=== PATIENT | female | born 1970 | race Caucasian/White ===

== ENCOUNTER 2021-07-06 10:08 | Outpatient (REF) | payer OTHER, SELFPAY ==
[2021-07-06 10:12] LABS: MANUAL DIFF FLAG NO
[2021-07-06 10:45] LABS: Basophils Percent Auto 0.4 % (0-2); Eosinophils Absolute Auto 0.2 X10*3/uL (0.0-0.4); Hematocrit 42.2 % (37-47); Hemoglobin 14.6 g/dl (12.0-16.0); Imm Gran Abs Auto 0.03 X10*3/uL (0.00-0.03); Imm Gran Pct Auto 0.4 % (0.0-0.4); Lymphocytes Absolute Auto 2.4 X10*3/uL (1.2-4.9); Mean Corpuscular HGB Conc 34.6 g/dl (31.0-35.0); Mean Corpuscular Hemoglobin 32.7 pg (27.0-33.0); Mean Corpuscular Volume 94.6 fL (80-98); Monocytes Absolute Auto 0.5 X10*3/uL (0.1-1.2); Monocytes Percent Auto 6.3 % (2-11); Neutrophils Absolute Auto 4.5 X10*3/uL (2.0-8.3); Neutrophils Percent Auto 58.9 % (45-73); Platelet Count 278 X10*3/uL (160-400); Red Blood Count 4.46 X10*6/uL (4.20-5.50); Red Cell Distribution Width 11.9 % (11.0-16.0); White Blood Count 7.6 X10*3/uL (4.8-10.8)
[2021-07-06 10:52] LABS: Estimated Average Glucose 88 mg/dL; Hemoglobin A1c % 4.7 %
[2021-07-06 10:53] LABS: Glucose Urine UA NEG (NEG); Leukocyte Esterase Urine NEG (NEG); Nitrite Urine NEG (NEG); Specific Gravity - Urine 1.025 (1.005-1.025); Urine Blood TRACE (NEG); Urine Ketones NEG (NEG); Urine Protein NEG (NEG-TRACE)
[2021-07-06 10:56] LABS: Appearance Urine CLEAR; Color Urine YELLOW
[2021-07-06 10:58] LABS: Alanine Aminotransferase 33 U/L (0-31); Albumin Level 4.2 g/dL (3.5-5.0); Alkaline Phosphatase 78 U/L (39-117); Anion Gap 12 (12-20); Aspartate Amino Transferase 23 U/L (5-31); Bilirubin Total 0.9 mg/dL (0.0-1.0); Blood Urea Nitrogen 16 mg/dL (9-16); Calcium 9.9 mg/dL (8.4-10.2); Carbon Dioxide 27 mmol/L (22-29); Chloride 104 mmol/L (96-108); Cholesterol 193 mg/dL; Estimated Glomerular Filt Rate > 60; Glucose Fasting 111 mg/dL (60-99); HDL Cholesterol 53 mg/dL; LDL Cholesterol Calculated 115 mg/dl; Potassium 4.1 mmol/L (3.3-5.1); Sodium 139 mmol/L (135-145); Total Protein 6.9 g/dL (6.5-8.0); Triglycerides 125 mg/dL
[2021-07-06 11:22] LABS: Creatinine Urine 167.02 mg/dL; Microalbum/Creatinine Ratio Ur 4.1 ug/mg cr
[2021-07-06 12:10] LABS: Bacteria Urine 1+ /LPF; RBC Urine 0 /HPF (0); Squamous Epithelial Cell Urine 2+ /LPF; WBC Urine 0-2 /HPF (0-4)
== END 2021-07-06 10:09 | disposition home or self-care (01) ==
LOC: HO.LNP 10:08
PROVIDERS: Visit Provider Internal Medicine
DX: Z00.00 Encounter for general adult medical examination without abnormal findings (principal); D72.820 Lymphocytosis (symptomatic); R79.9 Abnormal finding of blood chemistry, unspecified; R73.03 Prediabetes
CPT/HCPCS: 80053; 80061; 81001; 82043; 83036; 85025

== ENCOUNTER 2022-09-14 10:58 | Outpatient (REF) | payer BC, SELFPAY ==
[2022-09-14 11:03] LABS: MANUAL DIFF FLAG NO
[2022-09-14 11:56] LABS: Appearance Urine Clear; Color Urine Yellow; Glucose Urine UA Negative (Negative); Leukocyte Esterase Urine Negative (Negative); Nitrite Urine Negative (Negative); PH 5.5 (5.0-9.0); Urine Blood Negative (Negative); Urine Ketones Negative (Negative); Urine Protein Negative (Neg-Trace)
[2022-09-14 11:57] LABS: Basophils Absolute Auto 0.1 X10*3/uL (0.0-0.2); Basophils Percent Auto 0.9 % (0-2); Eosinophils Absolute Auto 0.2 X10*3/uL (0.0-0.4); Eosinophils Percent Auto 3.3 % (0-4); Hematocrit 40.9 % (37.0-47.0); Hemoglobin 14.3 g/dl (12.0-16.0); Imm Gran Abs Auto 0.01 X10*3/uL (0.00-0.03); Imm Gran Pct Auto 0.2 % (0.0-0.4); Lymphocytes Absolute Auto 1.9 X10*3/uL (1.2-4.9); Lymphocytes Percent Auto 32.9 % (20-40); Mean Corpuscular Hemoglobin 33.4 pg (27.0-33.0); Mean Corpuscular Volume 95.6 fL (80.0-98.0); Mean Platelet Volume 9.9 fL (9.4-12.3); Monocytes Absolute Auto 0.4 X10*3/uL (0.1-1.2); Monocytes Percent Auto 7.5 % (2-11); Neutrophils Absolute Auto 3.2 x10*3/uL (2.0-8.3); Neutrophils Percent Auto 55.2 % (45-73); Platelet Count 271 X10*3/uL (160-400); Red Blood Count 4.28 X10*6/uL (4.20-5.50); Red Cell Distribution Width 12.8 % (11.0-16.0); White Blood Count 5.7 X10*3/uL (4.8-10.8)
[2022-09-14 12:10] LABS: Bacteria Urine Trace (None Seen); Estimated Average Glucose 82 mg/dL; Hemoglobin A1C 92.5537 umol/L; Hemoglobin A1c % 4.5 %; Hyaline Casts Urine 0-2 /LPF (0-2); WBC Urine 0-5 /HPF (0-5)
[2022-09-14 12:33] LABS: Alanine Aminotransferase 10 U/L (0-31); Albumin Level 4.5 g/dL (3.5-5.0); Alkaline Phosphatase 64 U/L (39-117); Anion Gap 15 (12-20); Aspartate Amino Transferase 17 U/L (5-31); Bilirubin Total 1.3 mg/dL (0.0-1.0); Blood Urea Nitrogen 17 mg/dL (9-16); Calcium 9.5 mg/dL (8.4-10.2); Carbon Dioxide 24 mmol/L (22-29); Chloride 105 mmol/L (96-108); Cholesterol 220 mg/dL; Estimated Glomerular Filt Rate > 60; Glucose Fasting 106 mg/dL (60-99); HDL Cholesterol 74 mg/dL; LDL Cholesterol Calculated 136 mg/dl; Potassium 4.3 mmol/L (3.3-5.1); Sodium 140 mmol/L (135-145); Total Protein 7.2 g/dL (6.5-8.0); Triglycerides 50 mg/dL
[2022-09-14 12:40] LABS: Creatinine Urine 109.45 mg/dL; Microalbum/Creatinine Ratio Ur 5.4 ug/mg cr
== END 2022-09-14 10:59 | disposition home or self-care (01) ==
LOC: HO.LNP 10:58
PROVIDERS: Visit Provider Internal Medicine
DX: Z00.00 Encounter for general adult medical examination without abnormal findings (principal); R73.03 Prediabetes; D72.820 Lymphocytosis (symptomatic)
CPT/HCPCS: 80053; 80061; 81001; 82043; 83036; 85025

== ENCOUNTER 2022-11-22 15:51 | Outpatient (REF) | payer BC, SELFPAY ==
[2022-11-22 16:03] LABS: Appearance Urine Cloudy; Color Urine Yellow; Glucose Urine UA Negative (Negative); Leukocyte Esterase Urine Negative (Negative); Nitrite Urine Negative (Negative); PH 5.5 (5.0-9.0); Specific Gravity - Urine 1.025 (1.005-1.025); Urine Blood Negative (Negative); Urine Ketones Negative (Negative); Urine Protein Negative (Neg-Trace)
[2022-11-22 16:14] LABS: Bacteria Urine 4+ (None Seen)
== END 2022-11-22 15:52 | disposition home or self-care (01) ==
LOC: HO.LNP 15:51
PROVIDERS: Visit Provider Internal Medicine
DX: R31.9 Hematuria, unspecified (principal)
CPT/HCPCS: 81001; 87086

== ENCOUNTER 2022-12-20 10:39 | Outpatient (REF) | payer BC, SELFPAY ==
[2022-12-20 11:37] LABS: Appearance Urine Cloudy; Color Urine Yellow; Glucose Urine UA Negative (Negative); Leukocyte Esterase Urine Negative (Negative); Nitrite Urine Negative (Negative); Urine Blood Negative (Negative); Urine Ketones Negative (Negative); Urine Protein Negative (Neg-Trace)
== END 2022-12-20 10:40 | disposition home or self-care (01) ==
LOC: HO.LNP 10:39
PROVIDERS: Visit Provider Internal Medicine
DX: R31.9 Hematuria, unspecified (principal)
CPT/HCPCS: 81003

== ENCOUNTER 2023-12-19 11:14 | Outpatient (REF) | payer BC, SELFPAY ==
[2023-12-19 11:18] LABS: MANUAL DIFF FLAG NO
[2023-12-19 11:30] LABS: Basophils Percent Auto 0.6 % (0-2); Eosinophils Absolute Auto 0.2 X10*3/uL (0.0-0.4); Eosinophils Percent Auto 3.4 % (0-4); Hemoglobin 14.4 g/dl (12.0-16.0); Imm Gran Abs Auto 0.01 X10*3/uL (0.00-0.03); Imm Gran Pct Auto 0.2 % (0.0-0.4); Lymphocytes Percent Auto 31.2 % (20-40); Mean Corpuscular HGB Conc 35.1 g/dl (31.0-35.0); Mean Corpuscular Hemoglobin 33.4 pg (27.0-33.0); Mean Corpuscular Volume 95.1 fL (80.0-98.0); Monocytes Absolute Auto 0.4 X10*3/uL (0.1-1.2); Monocytes Percent Auto 6.7 % (2-11); Neutrophils Absolute Auto 3.7 x10*3/uL (2.0-8.3); Neutrophils Percent Auto 57.9 % (45-73); Platelet Count 250 X10*3/uL (160-400); Red Blood Count 4.31 X10*6/uL (4.20-5.50); Red Cell Distribution Width 12.5 % (11.0-16.0); White Blood Count 6.4 X10*3/uL (4.8-10.8)
[2023-12-19 11:37] LABS: Appearance Urine Clear; Color Urine Yellow; Glucose Urine UA Negative (Negative); Leukocyte Esterase Urine Negative (Negative); Nitrite Urine Negative (Negative); Specific Gravity - Urine 1.025 (1.005-1.025); UMIC TRIGGER UACC YES; Urine Blood Small (1+) (Negative); Urine Ketones Negative (Negative); Urine Protein Negative (Neg-Trace)
[2023-12-19 11:41] LABS: Alanine Aminotransferase 12 U/L (0-31); Albumin Level 4.2 g/dL (3.5-5.0); Alkaline Phosphatase 57 U/L (39-117); Anion Gap 11 (12-20); Aspartate Amino Transferase 16 U/L (5-31); Bilirubin Total 0.7 mg/dL (0.0-1.0); Blood Urea Nitrogen 20 mg/dL (9-16); Calcium 9.5 mg/dL (8.4-10.2); Carbon Dioxide 26 mmol/L (22-29); Chloride 104 mmol/L (96-108); Cholesterol 210 mg/dL (<200); Estimated Glomerular Filt Rate > 60; Glucose Fasting 97 mg/dL (60-99); HDL Cholesterol 64 mg/dL (>40); LDL Cholesterol Calculated 133 mg/dL (<100); Potassium 4.1 mmol/L (3.3-5.1); Sodium 137 mmol/L (135-145); Total Protein 7.2 g/dL (6.5-8.0); Triglycerides 67 mg/dL (<150)
[2023-12-19 11:44] LABS: Bacteria Urine None Seen (None Seen); Hyaline Casts Urine 0-2 /LPF (0-2); WBC Urine 0-5 /HPF (0-5)
[2023-12-19 11:58] LABS: Estimated Average Glucose 80 mg/dL; Hemoglobin A1c % 4.4 % (<6.0)
[2023-12-19 12:18] LABS: Creatinine Urine 163.19 mg/dL; Microalbum/Creatinine Ratio Ur 4.2 ug/mg cr (<30)
== END 2023-12-19 11:15 | disposition home or self-care (01) ==
LOC: HO.LNP 11:14
PROVIDERS: Visit Provider Internal Medicine
DX: Z00.00 Encounter for general adult medical examination without abnormal findings (principal); R73.03 Prediabetes; D72.820 Lymphocytosis (symptomatic)
CPT/HCPCS: 80053; 80061; 81001; 82043; 82570; 83036; 85025

== ENCOUNTER 2025-03-29 11:11 | Outpatient (REF) | payer BC, SELFPAY ==
[2025-03-29 11:15] LABS: MANUAL DIFF FLAG NO
[2025-03-29 12:30] LABS: Basophils Percent Auto 0.6 % (0-2); Eosinophils Absolute Auto 0.3 X10*3/uL (0.0-0.4); Eosinophils Percent Auto 5.8 % (0-4); Hematocrit 41.5 % (37.0-47.0); Hemoglobin 14.4 g/dl (12.0-16.0); Imm Gran Abs Auto 0.01 X10*3/uL (0.00-0.03); Imm Gran Pct Auto 0.2 % (0.0-0.4); Lymphocytes Absolute Auto 2.2 X10*3/uL (1.2-4.9); Lymphocytes Percent Auto 43.6 % (20-40); Mean Corpuscular HGB Conc 34.7 g/dl (31.0-35.0); Mean Corpuscular Hemoglobin 32.7 pg (27.0-33.0); Mean Corpuscular Volume 94.3 fL (80.0-98.0); Mean Platelet Volume 10.1 fL (9.4-12.3); Monocytes Absolute Auto 0.4 X10*3/uL (0.1-1.2); Monocytes Percent Auto 8.6 % (2-11); Neutrophils Absolute Auto 2.1 x10*3/uL (2.0-8.3); Neutrophils Percent Auto 41.2 % (45-73); Platelet Count 225 X10*3/uL (160-400); Red Cell Distribution Width 12.1 % (11.0-16.0)
[2025-03-29 12:41] LABS: Appearance Urine Clear; Color Urine Yellow; Glucose Urine UA Negative (Negative); Leukocyte Esterase Urine Negative (Negative); Nitrite Urine Negative (Negative); PH 5.5 (5.0-9.0); Specific Gravity - Urine 1.025 (1.005-1.025); Urine Blood Negative (Negative); Urine Ketones Negative (Negative); Urine Protein Negative (Neg-Trace)
--- OUTSIDE RECORDS SUMMARY | 2025-03-29 12:58 | XMS_ITS ---
Author Organization [employer] [facility] Address [address] [place] [address] Care Team Providers Care Staff Physician Name Role Phone Juan José Wyatt MD Primary Care Provider Conchis Davis [phone] REASON FOR VISIT NEEDS F/U APPT Encounters Encounter Location Date Provider Diagnosis [facility] [employer] [address] [place] [address] 05/01/2024 Conchis Duncan Plan Of Treatment Next Appt Details Provider Name:Conchis verdin, 05/31/2025 02:40:00 PM, [address], [address], [place], [address], Progress Notes * DICK TARANGODOB:[birth year] (53 yo F)Acc No.[id number]:05/01/2024 Patient:?DICK TARANGO :1970???Age:53 Y???Sex:Female Address:[address] [place] [address], [address] * true * Date:? Generated for Printi ng/Famaribelg/eTransmitting on:?03/29/2025 12:58 PM EDT
--- OUTSIDE RECORDS SUMMARY | 2025-03-29 12:59 | XMS_ITS ---
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 :1970???Age:54 Y???Sex:Female D ate:01/07/2025 Address:[address] [place], [place] [id number] Pcp:Juan José Wyatt MD Subjective: * Chief Complaints: * ???1. 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 * Medical History:? Objective: * Vitals:? Assessment: Plan: * Treatment: * Images: Billing Information: * Visit Code:? * Procedure Codes:? * Electronic signature of Neftali Duncan MD on 03/29/2025 at 12:59 PM EDT Sign off status: Pending * Appointment Provider:?Conchis Duncan M.D. Date:?01/07/2025 Generated for Jude gonzáles/Manny/Rio on:?03/29/2025 12:59 PM EDT
--- OUTSIDE RECORDS SUMMARY | 2025-03-29 12:59 | XMS_ITS | Patient Health Record ---
Author Organization Juan José Wyatt MD Address [address] [place], [place] [address] Care Team Providers Care Screedman/Laborer Name Role Phone Juan José Wyatt Primary Care Provider [phone] Allergies No Known Allergies Results Component Value Reference Range Notes Complete Blood Count Auto Di ff (Not yet reviewed by provider) Interpretation: Performing Lab:[facility], [address] [place] [id number] Notes/Report: White Blood Count 5.0 4.8-10.8 X10*3/uL Red Blood Count 4.40 4.20-5.50 X10*6/uL Hemoglobin 14.4 12.0-16.0 g/dl Hematocrit 41.5 37.0-47.0 % Mean Corpuscular Volume 94.3 80.0-98.0 fL Mean Corpuscular Hemoglobin 32.7 27.0-33.0 pg Mean Corpuscular HGB Conc 34.7 31.0-35.0 g/dl Red Cell Distribution Width 12.1 11.0-16.0 % Platelet Count 225 160-400 X10*3/uL Mean Platelet Volume 10.1 9.4-12.3 fL Neutrophils Percent Auto 41.2 45-73 % Imm Gran Pct Auto 0.2 0.0-0.4 % Lymphocytes Percent Auto 43.6 20-40 % Monocytes Percent Auto 8.6 2-11 % Eosinophils Percent Auto 5.8 0-4 % Basophils Percent Auto 0.6 0-2 % NRBC Pct Auto 0.0 0.0-0.2 /100WBC Neutrophils Absolute Auto 2.1 2.0-8.3 x10*3/u L Imm Gran Abs Auto 0.01 0.00-0.03 X10*3/uL Lymphocytes Absolute Auto 2.2 1.2-4.9 X10*3/u L Monocytes Absolute Auto 0.4 0.1-1.2 X10*3/uL Eosinophils Absolute Auto 0.3 0.0-0.4 X10*3/u L Basophils Absolute Auto 0.0 0.0-0.2 X10*3/uL NRBC Abs Auto 0.000 0.0-0.012 X10*3/uL Ariela Chen Reviewed date:03/29/2025 12:02:35 PM Interpretation: Performing Lab:[facility], [address] [place] [phone] Notes/Report: Ariela Chen See Note Specimen held untested for 24 hours; Call to request Chemistry testing. Reason For Referral No Information Medications Medication SIG (Take, Route, Frequency, Duration) Notes Start Date End Date Status Clotrimazole-Betamethaso ne 1-0.05 % 1 application Externally Twice a day for 30 days 01/10/2021 Not-Taki ng Imitrex 100 MG 1 tablet as needed Orally Once a day for 30 days 07/08/2017 Not-Taking Hyoscyamine Sulfate 0.125 MG 1 tablet on the tongue and allow to dissolve before meals Orally every 4 hrs Not-Taking ProAir HFA 108 (90 Base) MCG/ACT 1 puff as needed Inhalation every 4 hrs for 30 days 06/24/2020 Active Omeprazole 20 MG TAKE 1 CAPSULE BY MO [facility] EVERY DAY Orally Once a day for 90 days Active Fluticasone Propionate 50 MCG/ACT USE 2 SPRAYS IN EACH NOSTRIL EVERY DAY for 90 Active traZODone HCl 50 MG TAKE 1 TABLET BY MIREYA EVERY DAY AT BEDTIME NEEDED for 90 Active Paxlovid (300/100) 20 x 150 MG & 10 x 100MG 3 tablets Orally Twice a day for 5 day(s) 05/14/2024 Active Immunizations Vaccine Route Administration Date Status Comme nts Covid Vaccine Unknown 12/13/2020 Administered [facility] Covid Vaccine Unknown 11/22/2020 [facility]ered [facility] 11-22 #1 12-13-20 #2 Fluarix Quadrivalent Unknown 09/05/2020 Administered at work Fluarix Quadrivalent IM Intramuscular 08/24/2021 Administe red SARS-COV-2 Pfizer Unknown 11/22/2020 Administered SARS-COV-2 Pfizer Unknown 10/28/2021 Administered Fluarix Quadrivalent IM Intramuscular 09/14/2022 Administe red Fluarix Quadrivalent Unknown 09/22/2018 Refused Social History Tobacco Use: Social History Observation Description Date Details (start date - stop date) Never Smoker NA - NA Tobacco Use/Smoking Question Answer Notes Patient is a nonsmoker Additional Findings: Tobacco Non-User Cu rrent non-smoker, currently using no form of tobacco Alcohol Screen Question Answer Notes Did you have a drink contain ing alcohol in the past year? Yes How often did you have a dri nk containing alcohol in the past year? Monthly or less (1 point) How many drinks did you have on a typical day when you were drinking in the past year? 1 or 2 drinks (0 point) How often did you have 6 or more drinks on one occasion in the past year? Never (0 point) Points 1 Interpretation Negative Problems Problem Type SNOMED Code ICD Code Onset Dates Problem Status W/U Status Risk Notes Problem 43956311 Hematuria (R31.9) Active confirmed Problem 70470788 Lymphocytosis (D72.820) Active confirmed Problem Anxiety (88313448) Anxiety (F41.9) Active confi rmed Problem 184703047 Urinary incontinence (R32) Active confirmed Problem 445125917 Migraine without aura and without status migrainosus, not intractable (G43.009) Active confirmed Problem 700263922 Atyp squam cell of undet signfc cyto smr crvx (ASC-US) (R87.610) Active confirmed Problem 035467999 Prediabetes (R73.03) Active confirmed Problem 931332463494627 Primary osteoarthritis of right hand (M19.041) Active confirmed Vital Signs Height 65 in 05/14/2024 weight at home is 160 BP not taken at home no [id number] Encounters Encounter Location Date Provider Diagnosis Juan José Wyatt MD [address] [place] [id number] 03/29/2025 Juan José Wyatt Blood tests for routine general physical examination Z00.00 ; Prediabetes R73.03 ; Lymphocytosis D72.820 and Hematuria R31.9 Juan José Wyatt MD [address] [place] [phone] 05/14/2024 Juan José Wyatt Acute COVID-19 U07.1 Assessments Encounter Date Diagnosis (ICD Code) Assessment Notes Treatment Notes Treatment Clinical Notes Section Notes 03/29/2025 Blood tests for routine general physical examination (ICD-10 - Z00.00) 05/14/2024 Acute COVID-19 (ICD-10 - U07.1) patient verbalized understanding of medication and directions for use 03/29/2025 Prediabetes (ICD-10 - R73.03) 03/29/2025 Lymphocytosis (ICD-10 - D72.820) 03/29/2025 Hematuria (ICD-10 - R31.9) Plan Of Treatment Pending Test Test Name Order Date Electrocardiogram (EKG) 04/19/2017 Electrocardiogram (EKG) 05/01/2018 COLOGUARD 06/24/2020 Complete Blood Count Auto Diff Comprehensive [place]. Panel Fast 5 Lipid Panel 03/29/2025 Microalbumin, Random 03/29/2025 Hemoglobin A1c 03/29/2025 UA ClnCatch+Micro w/rflx Cult 03/29/2025 Next Appt Details Provider Name:Juan José Goldsmith ier, 04/05/2025 04:00:00 PM, [address], [address], [place], [place], [phone], Insurance Providers Payer Name Payer Address Payer Phone Subscriber Number Group Number Insured Name Patient Relationship to Insured Coverage Start Date Coverage End Date [employer] [address] [place], [place] [id number] [phone] [id number] Tamanna Schneider Self - patient is the insured Medical (General) History Medical History History ICD Code Pap Smear due 2019 per hedis review nurse seen by urology for hematuria in past cologard neg 2019
--- OUTSIDE RECORDS SUMMARY | 2025-03-29 13:00 | XMS_ITS ---
Author Organization [employer] [facility] Address [address] [place] [address] Care Team Providers Care Women Designer Name Role Phone Juan José Wyatt MD Primary Care Provider Conchis Davis [phone] MANZANARES APPT Encounters Encounter Location Date Provider Diagnosis [facility] [employer] [address] [place] [address] 05/06/2024 Conchis Duncan Plan Of Treatment Next Appt Details Provider Name:Conchis verdin, 05/31/2025 02:40:00 PM, [address], [address], [place], [address], Progress Notes * DICK TARANGODOB:[birth year] (53 yo F)Acc No.[id number]:05/06/2024 Patient:?DICK TARANGO :1970???Age:53 Y???Sex:Female Address:[address] [place] [address], [address] * true * Date:? Generated for Printi nivia/Famaribelg/eTransmitting on:?03/29/2025 01:00 PM EDT
--- OUTSIDE RECORDS SUMMARY | 2025-03-29 13:00 | XMS_ITS | Patient Health Record ---
Author Organization [facility] Address [address] [place] [address] Care Team Providers Care Deputy Chief Sheriff Name Role Phone Yoselin FRAZIER, Juan José Primary Care Provider Conchis Davis Unavailable [phone] Allergies No Known Allergies Results Component Value Reference Range Notes SURGICAL PATHOLOGY Reviewed date:05/05/2024 06:27:12 PM Interpretation: Performing Lab:Testing performed or reported by [facility], [place] [address] Michael Rodriguez MD, Security Attendant CLIA# [id number] Notes/Report: Patient Name: DICK TARANGO Lab Patient : 1970 (Age: 53) Collection Date: 05/01/2024 Accession Date: 05/01/2024 Sign Out Date: 05/05/2024 Tissue Source: 1:EMB Final Diagnosis: Endometrium, biopsy: - Proliferative endometrium. Primary Pathologist:Vanna Price M.D. electronically signed out by: Vanna Price M.D. / [facility] Clinical History: AUB Gross Description: Labeled endometrial biopsy . Received in formalin is a 2.2 x 2.0 x 0.3 cm aggregate of red, manzanares tissue with translucent mucus. The specimen is entirely submitted. 1-multiple pieces, x 2. (EG)* As of February 01, 2024, the specimen processing and staining is performed at [facility], [address] [place] [address] (CLIA#[id number]). [facility]. João Rodríguez M.D. Security Attendant of Surgical Pathology, Donavan Rich M.D. Security Attendant Cytopathology Phone #: [phone], On-Call Pathologist: [id number] Test, Urine Reviewed date:05/01/2024 11:15:29 AM Interpretation: Performing Lab: Notes/Report: Test, Urine Negative Reason For Referral No Information Medications Medication SIG (Take, Route, Frequency, Duration) Notes Start Date End Date Status Norethindrone Acetate 5 MG 1 tablet Oral ly TWICE A DAY for 14 days 05/01/2024 Active Fluticasone Propionate 50 MCG/ACT USE 2 SPRAYS IN EACH NOSTRIL EVERY DAY Nasal for 90 Days Active Albuterol Sulfate HFA 108 (90 Base) MCG/ACT INHALE 1 PUFF INTO THE LUNGS EVERY 4 HOURS NEEDED Inhalation for 30 Days Active traZODone HCl 50 MG TAKE 1 TABLET BY MIREYA TH EVERY DAY AT BEDTIME NEEDED Oral for 90 Days Active Omeprazole 20 MG 1 capsule 30 minutes before morning meal Orally Once a day for 30 day(s) 01/02/2024 Active miSOPROStol 200 MCG 2 Orally night befor e procedure for 1 days 02/06/2024 Active Social History Tobacco Use: Social History Observation Description Date Details (start date - stop date) Never Smoker NA - NA Tobacco Use/Smoking Question Answer Notes Are you a nonsmoker Alcohol Screen (Audit-C) Question Answer Notes Did you have a [...] Never (0 point) Points 1 Interpretation Negative Tobacco use other than smoking: Question Answer Notes Are you an other tobacco user? No Problems Problem Type SNOMED Code ICD Code Onset Dates Problem Status W/U Status Risk Notes Problem Reduced libido (9921910) Decreased libido (R68.82) Active confirmed Problem Gastro-esophage al reflux disease without esophagitis (147335236) Gastro-esophageal reflux disease without esophagitis (K21.9) Active confirmed Problem Abnormal vaginal bleeding (839454078) Other specified abnormal uterine and vaginal bleeding (N93.8) Active confirmed Problem Abnormal uterine bleeding (81130167418499 ) Abnormal uterine and vaginal bleeding, unspecified (N93.9) Active confirmed Problem Unspecified menopausal and perimenopausal disorder (N95.9) Active confirmed Problem Menopause (010483607) Menopausal and female climacteric states (N95.1) Active confirmed Encounters Encounter Location Date Provider Diagnosis [address] [place] [address] 05/01/2024 Conchis Dakota Abnormal uterine and vaginal bleeding, unspecified N93.[address] [address] 05/01/2024 Conchis Duncan [address] [address] 05/06/2024 Conchis Huffanueva Assessments Encounter Date Diagnosis (ICD Code) Assessment Notes Treatment Notes Treatment Clinical Notes Section Notes 05/01/2024 Abnormal uterine and vaginal bleeding, unspecified (ICD-10 - N93.9) DISCUSSED HSONO FINDINGS AND THINNER ENDOMETRIAL LINING. WILL WAIT FOR RADIOLOGIST TO READ THE REPORT BEFORE DISCUSSING POSSIBLE CERVICAL POLYP THAT WAS NOT SEEN BEFORE. PAT WILL RETURN TO DISCUSS EMB RESULTS. IN THE MEANTIME, WILL TREAT WITH AYGESTIN TO CONTROL BLEEDING. Plan Of Treatment Pending Test Test Name Order Date Sonohysterogram 01/02/2024 Urinalysis 01/02/2024 ENDOMETRIAL BX 01/02/2024 INHIBIN B 01/31/2024 MM Digital Mammo Screening 01/02/2024 Next Appt Details Provider Name:Conchis Ruiz velvet, 05/31/2025 02:40:00 PM, [address] [place] [address], [facility] [address], [place], [address], Insurance Providers Payer Name Payer Address Payer Phone Subscriber Number Group Number Insured Name Patient Relationship to Insured Coverage Start Date Coverage End Date [facility] [address] [place] [address] [id number] DICK TARANGO Self - patient is the insured Medical (General) History Medical History History ICD Code Atypical squamous cells of u ndetermined significance on cytologic smear of cervix (ASC-US) R87.610 Cervical high risk human papillomavirus (HPV) DNA test positive R87.810 Gastro-esophageal reflux disease without esophagitis K21.9 Headache, unspecified R51.9 Inconclusive mammogram R92.2 Mammographic heterogeneous density, bila teral breasts R92.333 Abnormal uterine and vaginal bleeding, u nspecified N93.9 Decreased libido R68.82 Surgical History Surgery Date(Month/Year) Bunionectomy Colposcopy Breast Reduction Tonsillectomy [place] Tooth Extraction Hospitalization History Reason Date(Month/Year) See Surgical Hx
--- OUTSIDE RECORDS SUMMARY | 2025-03-29 13:01 | XMS_ITS ---
Author Organization Juan José Wyatt MD Address [address] [place], [place] [address] Care Team Providers Care Crop Scout Name Role Phone Juan José Wyatt Primary Care Provider Allergies No Known Allergies REASON FOR VISIT Positive Covid tested this AM, c/o fatigue , headache productive cough, muscle pain, runny nose congestion x 4 days, Video [phone] Medications Medication SIG (Take, Route, Frequency, Duration) [...] before meals Orally every 4 hrs Not-Taking Omeprazole 20 MG TAKE 1 CAPSULE BY MO [facility] EVERY DAY Orally Once a day for 90 days Active Fluticasone Propionate 50 MCG/ACT USE 2 SPRAYS IN EACH NOSTRIL EVERY DAY for 90 Active ProAir HFA 108 (90 Base) MCG/ACT 1 puff as needed Inhalation every 4 hrs for 30 days 06/24/2020 Active traZODone HCl 50 MG TAKE 1 TABLET BY MIREYA EVERY DAY AT BEDTIME NEEDED for 90 Active Paxlovid (300/100) 20 x 150 MG & 10 x 100MG 3 tablets Orally Twice a day for 5 day(s) 05/14/2024 Active Vital Signs Height 65 in 05/14/2024 weight at home is 160 BP not taken at home no [id number] Encounters Encounter Location Date Provider Diagnosis Juan José Wyatt MD [address] [place] [address] Drive [address] [place], [place] [phone] 05/14/2024 Juan José Wyatt Acute COVID-19 U07.1 Assessments Encounter Date Diagnosis (ICD Code) Assessment Notes Treatment Notes Treatment Clinical Notes Section Notes 05/14/2024 Acute COVID-19 (ICD-10 - U07.1) patient verbalized understanding of medication and directions for use Plan Of Treatment Medication Medication Name Sig Start Date Stop Date Notes Paxlovid (300/100) 20 x 150 MG & 10 x 100MG 3 tablets Orally Twice a day for 5 day(s) 05/14/2024 Treatment Notes Assessment Notes Acute COVID-19 patient verbalized u nderstanding of medication and directions for use Next Appt Details Provider Name:Juan José Goldsmith ier, 04/05/2025 04:00:00 PM, [address] [place] [address], [address] [facility], [place], [place], [phone], Progress Notes * Tamanna SCHNEIDER ADOB:1969 (53 yo F)Acc No.[id number]:05/14/2024 Patient:?Tamanna Schneider Provider:?Juan José Wyatt MD :1970???Age:53 Y???Sex:Female D ate:05/14/2024 Address:[address] [place], [place] [address] Subjective: * Chief Complaints: * ???Positive Covid tested thi s [facility]/o fatigue , headache productive cough, muscle pain, runny nose congestion x 4 daysVideo [phone] * HPI: ???Symptom(s):?Telehealth?Location of provider rendering services:?[address] [facility], [address],?Location of patient:?at address listed in demographics for today's visit,?Patient identification confirmed using:?Name, , SSN, Insurance information,?Telehealth method:?Video conference where patient is visible to the provider of care,?Consent:?Patient verbally consented to treatment, Patient verbally consented to billing insurance company, Patient informed of any privacy concerns related to method of visit.? patient is a 53 yo female video telehealth visit, tested positive for covid this morning, felt like allergies earlier in the week. now complaining of fatigue, headache, cough, muscle pain , runny nose. thinks has had it 4 days already. * ROS:?General/Constitutional:?Denies?Chills.?Admits?Fatigue.?Denies?Fever.?Admits?Headache.?ENT:?Patient denies?decreased sense of smell , any loss of taste , sore throat.?Denies?Sore throat.?Respiratory:?Admits?Cough.?Denies?Shortness of breath at rest.?Denies?Shortness of breath with exertion.?Admits?Sputum production.?Gastrointestinal:?Denies?Diarrhea.?Denies?Nausea.?Musculoskeletal:?Patient complaining of?muscle pain.?Peripheral Vascular:?Patient denies?red and blue toes.? * Medical History:? * Surgical History:? * Hospitalization/Major Diagno stic Procedure:? * Medications:?TakingProAir HF A 108 (90 Base) MCG/ACT Aerosol Solution 1 puff as needed Inhalation every 4 hrstraZODone HCl 50 MG Tablet TAKE 1 TABLET BY MOUTH EVERY DAY AT BEDTIME NEEDED Omeprazole 20 MG Capsule Delayed Release TAKE 1 CAPSULE BY MOUTH EVERY DAY Orally Once a dayFluticasone Propionate 50 MCG/ACT Suspension USE 2 SPRAYS IN EACH NOSTRIL EVERY DAY Taking ProAir HFA 108 (90 Base) MCG/ACT Aerosol Solution 1 puff as needed Inhalation every 4 hrsTaking traZODone HCl 50 MG Tablet TAKE 1 TABLET BY MOUTH EVERY DAY AT BEDTIME NEEDED Taking Omeprazole 20 MG Capsule Delayed Release TAKE 1 CAPSULE BY MOUTH EVERY DAY Orally Once a dayTaking Fluticasone Propionate 50 MCG/ACT Suspension USE 2 SPRAYS IN EACH NOSTRIL EVERY DAY Not-Taking/PRNClotrimazole-Betamethasone 1-0.05 % Cream 1 application Externally Twice a dayImitrex 100 MG Tablet 1 tablet as needed Orally Once a dayHyoscyamine Sulfate 0.125 MG Tablet Dispersible 1 tablet on the tongue and allow to dissolve before meals Orally every 4 hrsMedication List reviewed and reconciled with the patientNot-Taking/PRN Clotrimazole-Betamethasone 1-0.05 % Cream 1 application Externally Twice a dayNot-Taking/PRN Imitrex 100 MG Tablet 1 tablet as needed Orally Once a dayNot-Taking/PRN Hyoscyamine Sulfate 0.125 MG Tablet Dispersible 1 tablet on the tongue and allow to dissolve before meals Orally every 4 hrsMedication List reviewed and reconciled with the patient * Allergies:?N.K.D.A.yes[Timmy koo Verified] Objective: * Vitals:?Ht: 65 weight at home is 160 BP not taken at home no [id number]. * Examination: ???General Examination: ?GENERAL APPEARANCE:? alert, well hydrated, in no distress .? Assessment: * Assessment: 1.?Acute COVID-19 - U07.1 (P rimary)? Plan: * Treatment: * Procedure Codes:? * * Sign off status: Completed true * Provider:?Juan José Wyatt MD Date:?0 05/14/2024 Generated for Jude gonzáles/Manny/Rio on:?03/29/2025 01:01 PM EDT History and Physical Notes * HPI (History of Present Illness) Category Sub-Category Detail Notes Category Not es Symptom(s) Telehealth Location of [facility] rendering services:: [address], [address] patient is a 53 yo female video telehealth visit, tested positive for covid this morning, felt like allergies earlier in the week. now complaining of fatigue, headache, cough, muscle pain , runny nose. thinks has had it 4 days already. Location of patient:: at address listed in demographics for today's visit Patient identification confirmed using:: Name, , SSN, Insurance information Telehealth method:: Video co nference where patient is visible to the provider of care Consent:: Patient verbally c onsented to treatment, Patient verbally consented to billing insurance company, Patient informed of any privacy concerns related to method of visit Examination Category Sub-Category Detail Notes Category Not es General Examination GENERAL APPEARANCE: alert, w ell hydrated, in no distress
--- OUTSIDE RECORDS SUMMARY | 2025-03-29 13:01 | XMS_ITS ---
Author Organization Juan José Wyatt MD Address [address] [place] [address] [place] [phone] Care Team Providers Care Photographer'S Assistant Name Role Phone Juan José Wyatt Primary Care Provider [phone] REASON FOR VISIT New Refill Request Medications Medication SIG (Take, Route, Fr equency, Duration) Notes Start Date End Date Status Omeprazole 20 MG TAKE 1 CAPSULE BY MO [facility] EVERY DAY Orally Once a day for 90 days Ac tive Encounters Encounter Location Date Provider Diagnosis Juan José Wyatt MD [address] [place] [address] [place] [phone] 02/08/2024 Juan José Wyatt Plan Of Treatment Medication Medication Name Sig Start Date Stop Date Notes Omeprazole 20 MG TAKE 1 CAPSULE BY MO [facility] EVERY DAY Orally Once a day for 90 days Next Appt Details Provider Name:Juan José greer, 04/05/2025 04:00:00 PM, [address] [place] [address], [place] [address], [place], [place], [phone], Progress Notes * Tamanna SCHNEIDER ADOB:1969 (53 yo F)Acc No.[id number]:02/08/2024 Patient:?Tamanna Schneider :1970???Age:53 Y???Sex:Female Address:[address] [place] [address] * Refills? Refill Omeprazole Capsule Delayed Release, 20 MG, Orally, 90 Capsule, TAKE 1 CAPSULE BY MOUTH EVERY DAY, Once a day, 90 days, Refills=3 * true * Date:? Generated for Jude gonzáles/Manny/Penelopeitting on:?03/29/2025 01:00 PM EDT
--- OUTSIDE RECORDS SUMMARY | 2025-03-29 13:02 | XMS_ITS ---
Author Organization Juan José Wyatt MD Address [address] [place], [place] [id number] Care Team Providers Care Compliance Testing Analyst Name Role Phone Juan José Wyatt Primary Care Provider Results Component Value Reference Range Notes Complete Blood Count Auto Di ff (Not yet reviewed by provider) Interpretation: Performing Lab:[facility], [address] [place] [id number] Notes/Report: White Blood Count 5.0 4.8-10.8 X10*3/uL [...] X10*3/uL NRBC Abs Auto 0.000 0.0-0.012 X10*3/uL REASON FOR VISIT yearly fasting lab Encounters Encounter Location Date Provider Diagnosis Juan José Wyatt MD [address] [place], [place] [id number] 03/29/2025 Juan José Wyatt Blood tests for routine general physical examination Z00.00 ; Prediabetes R73.03 ; Lymphocytosis D72.820 and Hematuria R31.9 Assessments Encounter Date Diagnosis (ICD Code) Assessment Notes Treatment Notes Treatment Clinical Notes Section Notes 03/29/2025 Blood tests for routine general physical examination (ICD-10 - Z00.00) 03/29/2025 Prediabetes (ICD-10 - R73.03) 03/29/2025 Lymphocytosis (ICD-10 - D72.820) 03/29/2025 Hematuria (ICD-10 - R31.9) Plan Of Treatment Pending Test Test Name Order Date Complete Blood Count Auto Diff 5 [facility] [place]. Panel Fast 5 Lipid Panel 03/29/2025 Microalbumin, Random 03/29/2025 Hemoglobin A1c 03/29/2025 UA ClnCatch+Micro w/rflx Cult 03/29/2025 Next Appt Details Provider Name:Juan José Goldsmith ier, 04/05/2025 04:00:00 PM, [address], [address], [place], [place], [phone], Progress Notes * Tamanna SCHNEIDER ADOB:1969 (54 yo F)Acc No.[id number]:03/29/2025 Progress Note Patient:?Tamanna SCHNEIDER Provider:?Juan José Wyatt MD :1970???Age:54 Y???Sex:Female D ate:03/29/2025 Address:[address] [facility], [place], [id number] Subjective: * Chief Complaints: * ???1. Yearly fasting lab. * Medical History:? Objective: * Vitals:? Assessment: * Assessment: 1.?Blood tests for routine g eneral physical examination - Z00.00 (Primary)???2.?Prediabetes - R73.03???3.?Lymphocytosis - D72.820???4.?Hematuria - R31.9??? Plan: * Treatment: 2.?Prediabetes?LAB: Complete Blood Count Auto Diff (Collection Date & Time - 03/29/2025 07:00 AM) ?LAB: [facility]. Panel Fast ?LAB: Lipid Panel ?LAB: Microalbumin, Random ?LAB: Hemoglobin A1c ?LAB: UA ClnCatch+Micro w/rflx Cult 3.?Lymphocytosis?LAB: Complete Blood Count Auto Diff (Collection Date & Time - 03/29/2025 07:00 AM) ?LAB: [facility] [place]. Panel Fast ?LAB: Lipid Panel ?LAB: Microalbumin, Random ?LAB: Hemoglobin A1c ?LAB: UA ClnCatch+Micro w/rflx Cult 4.?Hematuria?LAB: Complete Blood Count Auto Diff (Collection Date & Time - 03/29/2025 07:00 AM) ?LAB: [facility] [place]. Panel Fast ?LAB: Lipid Panel ?LAB: Microalbumin, Random ?LAB: Hemoglobin A1c ?LAB: UA ClnCatch+Micro w/rflx Cult * Procedure Codes:?31143 VENIP UNCT, ROUTINE* * * The named appointment provid er may or may not be the originator of this progress note, and it is not deemed complete until electronically signed by the appointment provider. Sign off status: Pending * Provider:?Juan José Wyatt MD Date:?0 03/29/2025 Generated for Jude gonzáles/Manny/Rio on:?03/29/2025 01:01 PM [place]
[2025-03-29 13:03] LABS: Estimated Average Glucose 91 mg/dL; Hemoglobin A1C 113.4291 umol/L; Hemoglobin A1c % 4.8 % (<6.0); Total Hemoglobin (HGBA1C) 3855.5809 umol/L
[2025-03-29 13:04] LABS: Creatinine Urine 260.05 mg/dL; Microalbum/Creatinine Ratio Ur 3.8 ug/mg cr (<30)
[2025-03-29 13:39] LABS: Alanine Aminotransferase 21 U/L (0-31); Albumin Level 4.2 g/dL (3.5-5.0); Alkaline Phosphatase 81 U/L (39-117); Anion Gap 12 (12-20); Aspartate Amino Transferase 29 U/L (5-31); Bilirubin Total 0.6 mg/dL (0.0-1.0); Blood Urea Nitrogen 17 mg/dL (9-16); Calcium 9.6 mg/dL (8.4-10.2); Carbon Dioxide 26 mmol/L (22-29); Chloride 107 mmol/L (96-108); Cholesterol 231 mg/dL (<200); Estimated Glomerular Filt Rate > 60; Glucose Fasting 106 mg/dL (60-99); HDL Cholesterol 66 mg/dL (>40); LDL Cholesterol Calculated 143 mg/dL (<100); Sodium 141 mmol/L (135-145); Triglycerides 113 mg/dL (<150)
[2025-03-29 14:04] LABS: Bacteria Urine None Seen (None Seen); Hyaline Casts Urine 0-2 /LPF (0-2); RBC Urine 0-2 /HPF (0-2); WBC Urine 0-5 /HPF (0-5)
== END 2025-03-29 11:12 | disposition home or self-care (01) ==
LOC: HO.LNP 11:11
PROVIDERS: Visit Provider Internal Medicine
DX: Z00.00 Encounter for general adult medical examination without abnormal findings (principal); D72.820 Lymphocytosis (symptomatic); R31.9 Hematuria, unspecified; R73.03 Prediabetes; Z13.6 Encounter for screening for cardiovascular disorders
CPT/HCPCS: 80053; 80061; 81001; 82043; 82570; 83036; 85025